=== PATIENT | female | born 1955 | race Caucasian/White ===

== ENCOUNTER 2018-06-19 15:27 | Emergency (ER) | payer BC ==
[2018-06-19 15:27] VITALS: BMI 31.9
--- NOTE | 2018-06-19 16:35 | ED PDOC ---
Upper Extremity Pain/Injury Time Seen by Provider: 06/19/18 16:17 Chief Complaint (Nursing): Upper Extremity Problem/Injury Chief Complaint (Provider): right wrist and forearm pain History Per: Patient History/Exam Limitations: no limitations Onset/Duration Of Symptoms: Days (x3) Current Symptoms Are (Timing): Still Present Additional Complaint(s): 63 year old right hand dominant female with a history of diabetes and high cholesterol presents to the ED with right wrist swelling and pain radiating up to right elbow that started 3 days ago. Patient denies any trauma or injury, no fever or chills. Patient states that she went shopping a few days ago and was lifting heavy bags with right arm. PMD: Dr. Nu Griffin Past Medical History Reviewed: Historical Data, Nursing Documentation, Vital Signs Vital Signs: Last Vital Signs Temp 98.9 F 06/19/18 15:36 Pulse 84 06/19/18 15:36 Resp 16 06/19/18 15:36 BP 140/76 06/19/18 15:36 Pulse Ox 96 06/19/18 15:36 - Medical History PMH: Diabetes (type II), Hypercholesterolemia - Surgical History Surgical History: Appendectomy - Family History Family History: States: No Known Family Hx - Living Arrangements Living Arrangements: With Family - Social History Current smoker - smoking cessation education provided: No Ex-Smoker (has not smoked in the last 12 months): No Alcohol: Social Drugs: Denies - Home Medications Home Medications: Ambulatory Orders Medication Instructions Recorded Naproxen [Naprosyn Tab] 375 mg PO BID PRN #14 tab 12/14/16 Cyclobenzaprine [Cyclobenzaprine 10 mg PO TID PRN #20 tab 06/19/18 HCl] Naproxen [Naprosyn] 500 mg PO BID #20 tab 06/19/18 - Allergies Allergies/Adverse Reactions: Allergies Allergy/AdvReac Type Severity Reaction Status Date / Time No Known Allergies Allergy Verified 06/19/18 15:36 Review of Systems ROS Statement: Except As Marked, All Systems Reviewed And Found Negative Constitutional: Negative for: Fever Cardiovascular: Negative for: Chest Pain Respiratory: Negative for: Cough Gastrointestinal: Negative for: Nausea, Vomiting Musculoskeletal: Positive for: Other (right wrist and forearm pain) Neurological: Negative for: Headache, Dizziness Physical Exam - Reviewed Nursing Documentation Reviewed: Yes Vital Signs Reviewed: Yes - Physical Exam Appears: Positive for: Well, Non-toxic, No Acute Distress Skin: Positive for: Normal Color. Negative for: Rash Eye Exam: Positive for: Normal appearance Neck: Positive for: Normal Cardiovascular/Chest: Positive for: Regular Rate, Rhythm Respiratory: Positive for: Normal Breath Sounds Extremity: Positive for: Other (Mild swelling dorsal aspect of right wrist, tenderness to right forearm, full range of motion right elbow and shoulder, decreased range of motion right wrist due to pain, normal distal sensation) Neurologic/Psych: Positive for: Alert, Oriented - ECG O2 Sat by Pulse Oximetry: 96 (RA) Pulse Ox Interpretation: Normal - Other Rad right hand and wrist x-ray X-Ray: Interpreted by Me, Viewed By Me X-Ray Interpretation: no fx, no dis right forearm x-ray X-Ray: Interpreted by Me, Viewed By Me X-Ray Interpretation: no fx, no dis Medical Decision Making Medical Decision Making: Time: 16:28 Initial Impression: 63 year old female with right arm pain Initial Plan: --Right forear XR --Right hand XR --Right wrist XR --Motrin Patient states motrin helped pain. Rx naprosyn and flexeril given. Ortho referral provided. Scribe Attestation: Documented by Amelia Sanz, acting as a scribe for Jess Delacruz PA-C. Provider Scribe Attestation: All medical record entries made by the Scribe were at my direction and personally dictated by me. I have reviewed the chart and agree that the record accurately reflects my personal performance of the history, physical exam, medical decision making, and the department course for this patient. I have also personally directed, reviewed, and agree with the discharge instructions and disposition. Procedures - Splinting Location: right arm Pre-Made Type: velcro wrist splint, sling Pre-Proc Neuro Vasc Exam: normal Post-Proc Neuro Vasc Exam: normal Disposition - Clinical Impression Clinical Impression: Wrist tendonitis - Patient ED Disposition Is Patient to be Admitted: No Counseled Patient/Family Regarding: Studies Performed, Diagnosis, Need For Followup, Rx Given - Disposition Referrals: Sual Bailey III, MD [Staff Provider] - Disposition: Routine/Home Disposition Time: 17:31 Condition: STABLE Additional Instructions: Ice, rest and elevate affected area. Take prescription meds as directed as needed for pain. Follow-up with orthopedist or primary doctor for any persistent symptoms. Prescriptions: Cyclobenzaprine [Cyclobenzaprine HCl] 10 mg PO TID PRN #20 tab PRN Reason: Muscle Spasm Naproxen [Naprosyn] 500 mg PO BID #20 tab Instructions: Tendonitis (DC), Wrist Sprain (DC) Forms: [facility] (Italian)
--- NOTE | 2018-06-19 17:16 | RAD ---
Date of service: 06/19/2018 PROCEDURE: Right Wrist Radiographs. HISTORY: trauma COMPARISON: None. FINDINGS: BONES: Normal. No fracture. JOINTS: Normal. No dislocation. SOFT TISSUES: Normal. OTHER FINDINGS: None. IMPRESSION: Normal right wrist radiographs. Concordant results with the preliminary interpretation rendered by the emergency department physician procedure.
--- NOTE | 2018-06-19 17:17 | RAD ---
PROCEDURE: Radiographs of the Right Forearm HISTORY: trauma COMPARISON: None available. TECHNIQUE: Frontal and lateral views obtained. FINDINGS: BONES: No fracture or destructive lesion. JOINT SPACES: Unremarkable. OTHER FINDINGS: None. IMPRESSION: Unremarkable radiographs of the right forearm. Concordant results with the preliminary interpretation rendered by the emergency department physician procedure.
--- NOTE | 2018-06-19 17:17 | RAD ---
PROCEDURE: Right Hand Radiographs. HISTORY: Nontraumatic right upper extremity pain. COMPARISON: None. FINDINGS: BONES: Normal. No fracture. JOINTS: Normal. No osteoarthritic changes. SOFT TISSUES: Normal. OTHER FINDINGS: None. IMPRESSION: No significant or acute findings to account for/ related to the clinical presentation. Concordant results with the preliminary interpretation rendered by the emergency department physician procedure.
[2018-06-19 18:00] VITALS: BP 130/78; PULSE 78; RESP 18; TEMP 98; O2SAT 99
== END 2018-06-19 17:58 | disposition home or self-care (01) ==
LOC: H.ER 15:27
DX: M65.841 Other synovitis and tenosynovitis, right hand (principal); E11.9 Type 2 diabetes mellitus without complications; E78.00 Pure hypercholesterolemia, unspecified

== ENCOUNTER 2018-11-05 08:54 | Emergency (ER) | payer BC ==
[2018-11-05 08:54] VITALS: BMI 31.9
[2018-11-05 09:02] VITALS: BP 137/82; PULSE 72; RESP 17; TEMP 97.4; O2SAT 98
--- NOTE | 2018-11-05 09:32 | ED PDOC ---
HPI: Skin/Bite Injury Time Seen by Provider: 11/05/18 09:15 Chief Complaint (Nursing): Abnormal Skin Integrity History Per: Patient Onset/Duration Of Symptoms: Days (2) Location Of Injury: Left: Leg Quality Of Symptoms: Itching Severity: Mild Pain Scale Rating Of: 0 Additional Complaint(s): Chronic mole left leg fell off in shower 2 days ago and bled. No swelling, drainage or pain since then. Past Medical History Vital Signs: Last Vital Signs Temp 97.4 F L 11/05/18 09:01 Pulse 72 11/05/18 09:01 Resp 17 11/05/18 09:01 BP 137/82 11/05/18 09:01 Pulse Ox 98 11/05/18 09:01 - Medical History PMH: Diabetes (type II), Hypercholesterolemia - Surgical History Surgical History: Appendectomy - Family History Family History: States: Unknown Family Hx - Home Medications Home Medications: Ambulatory Orders Medication Instructions Recorded Naproxen [Naprosyn Tab] 375 mg PO BID PRN #14 tab 12/14/16 Cyclobenzaprine [Cyclobenzaprine 10 mg PO TID PRN #20 tab 06/19/18 HCl] Naproxen [Naprosyn] 500 mg PO BID #20 tab 06/19/18 - Allergies Allergies/Adverse Reactions: Allergies Allergy/AdvReac Type Severity Reaction Status Date / Time No Known Allergies Allergy Verified 06/19/18 15:36 Review of Systems Constitutional: Negative for: Fever Skin: Positive for: Other (Mole let leg) Physical Exam - Physical Exam Appears: Positive for: Non-toxic, No Acute Distress Extremity: Positive for: Other (Left lower ext. 1 cm scab lateral distal 1/3. No surrounding erythema or drainage. Nontender.) - ECG O2 Sat by Pulse Oximetry: 98 Medical Decision Making Medical Decision Making: Will refer to derm for possible biopsy. No evidence of infection Disposition - Clinical Impression Clinical Impression: Skin mole - Patient ED Disposition Is Patient to be Admitted: No Counseled Patient/Family Regarding: Diagnosis, Need For Followup - Disposition Referrals: Isidro Luis MD [Staff Provider] - Disposition: Routine/Home Disposition Time: 09:33 Condition: FAIR Instructions: Moles on the Skin
== END 2018-11-05 09:40 | disposition home or self-care (01) ==
LOC: H.ER 08:54
DX: D22.9 Melanocytic nevi, unspecified (principal)

== ENCOUNTER 2018-12-17 10:48 | Emergency (ER) | payer BC ==
[2018-12-17 10:56] VITALS: BMI 32.6
[2018-12-17 10:58] VITALS: BP 130/78; PULSE 81; TEMP 97.7; O2SAT 96
[2018-12-17] MEDS ORDERED: Naproxen 500 MG TAB PO STA (12:26)
[2018-12-17 12:27] VITALS: RESP 18
--- NOTE | 2018-12-17 12:40 | ED PDOC ---
Lower Extremity Pain/Injury Time Seen by Provider: 12/17/18 12:19 Chief Complaint (Nursing): Lower Extremity Problem/Injury Chief Complaint (Provider): Lower Extremity Problem/Injury History Per: Patient History/Exam Limitations: no limitations Onset/Duration Of Symptoms: Days (x 2) Current Symptoms Are (Timing): Still Present Pain Scale Rating Of: 7 Additional Complaint(s): 63 year old female with a history of diabetes and hypothyroidism presents for evaluation of a right foot injury sustained yesterday. Patient was walking in front of her apartment building when she slipped on ice, landing on her buttocks and twisting her foot in the process. She reports that worsening pain to the foot interfered with her sleep. Pain worsens with movement. Patient also reports difficulty ambulating. She took aspirin yesterday with no relief and did not take any pain medications today. Denies other injury, prior foot surgeries and other complaints. PMD: Dr. Navin Griffin - Ankle/Foot Description Of Injury: Twisted Past Medical History Reviewed: Historical Data, Nursing Documentation, Vital Signs Vital Signs: Last Vital Signs Temp 97.7 F 12/17/18 12:10 Pulse 81 12/17/18 12:10 Resp 18 12/17/18 12:10 BP 130/78 12/17/18 12:10 Pulse Ox 96 12/17/18 12:10 - Medical History PMH: Diabetes (type II), Hypercholesterolemia, Hypothyroidism - Surgical History Surgical History: Appendectomy, - Family History Family History: States: Unknown Family Hx - Social History Current smoker - smoking cessation education provided: No Alcohol: Social Drugs: Denies - Home Medications Home Medications: Ambulatory Orders Medication Instructions Recorded RX: Naproxen [Naprosyn Tab] 375 mg PO BID PRN #14 tab 12/14/16 Cyclobenzaprine [Cyclobenzaprine 10 mg PO TID PRN #20 tab 06/19/18 HCl] Naproxen [Naprosyn] 500 mg PO BID #20 tab 06/19/18 Acetaminophen [Acetaminophen 8 650 mg PO Q8 PRN #21 tablet.er 12/17/18 Hour] Meloxicam [Mobic] 15 mg PO DAILY #10 tab 12/17/18 - Allergies Allergies/Adverse Reactions: Allergies Allergy/AdvReac Type Severity Reaction Status Date / Time No Known Allergies Allergy Verified 06/19/18 15:36 Review of Systems ROS Statement: Except As Marked, All Systems Reviewed And Found Negative Musculoskeletal: Positive for: Foot Pain (right) Physical Exam - Reviewed Nursing Documentation Reviewed: Yes Vital Signs Reviewed: Yes - Physical Exam Comments: GENERAL APPEARANCE: Patient is awake, alert, oriented x 3, in no distress, resting comfortably. Limping in the ED. SKIN: Warm, dry; (-) cyanosis. CARDIOVASCULAR: regular rate and rhythm NECK: Supple, FROM RESPIRATORY: Normal breath sounds, respirations even and nonlabored. LOWER EXTREMITY: Right foot: (+) edema to the dorsum of the mid foot and forefoot, diffuse tenderness of the distal aspect of the 1st-4th metatarsals; (+) decreased range of motion of foot secondary to pain. (+) diffuse tenderness to the first toe, (-) erythema, skin break, warmth; Ankle and calf are nontender. Achilles tendon intact and nontender. Sensation and capillary refill intact. (+) distal pulses. NEUROLOGIC: (+) distal sensation. - ECG O2 Sat by Pulse Oximetry: 96 (RA) Pulse Ox Interpretation: Normal Medical Decision Making Medical Decision Makin:26 Clinical Impression: acute foot pain; sprain vs fracture Initial Plan: --Naproxen 500 mg PO --Right foot x-ray 3 views --Re-evaluation 1320 XR reviewed, radiology report follows Date of service: 12/17/2018 PROCEDURE: Right Foot Radiographs. HISTORY: s/p fall on ice, pain COMPARISON: 12/14/2016 FINDINGS: BONES: Current lateral view is slightly different than the prior 1. Along the dorsal aspect of the 1st metatarsal base a triangular 5 x 3 mm bony density is noted this may represent a prior subacute or subacute to chronic fracture or some ossific debris. Any potential donor site would likely be 1st dorsal proximal phalanx. This proximal to this there is prominent osteophytic spurring along the dorsal 1st metatarsal head. The soft tissues here appears somewhat thickened-clinical correlation is needed given the concomitant 1st metatarsal- phalangeal joint arthrosis present. Given the frontal view-however a small chip osseous avulsion off the lateral 1st metatarsal head just distal to the lateral sesamoid bone cannot be excluded. The current study a faint lucency here is noted this is not appreciated such on the prior study. The apparent separate well corticated small ossification dorsal aspect 1st metatarsal-phalangeal joint therefore is indeterminate in its exact origin and clinical significance- differential considerations are a subacute or subacute to chronic ossific avulsed fracture fragment or some degenerative debris. Conceivably some of fracture of a small osteophyte here is another consideration. History does note pain and swelling and trauma No 5th middle phalanx is noted. This may be developmental variant with fusion to the more distal 5th phalanx. The 5th proximal phalanx has a somewhat truncated appearance yet is well corticated and this appearance is unchanged with the prior study. Incidentally noted is an os peroneum JOINTS: First metatarsal-phalangeal joint arthrosis-as described above. SOFT TISSUES: Diffuse soft tissue swelling mild in degree of the metatarsal heads. OTHER FINDINGS: Franklin's tendon insetional enesthesophyte. Increasing conspicuity on this current exam. IMPRESSION: Indeterminate findings regarding the triangular well corticated ossification dorsal aspect at the 1st metatarsal-phalangeal joint level-an osseous avulsion fracture fragment here probably not acute is 1 consideration. Subacute and/or subacute to chronic osseous avulsion is another consideration. Large degenerative debris and/or fractured prior osteophyte in this area can also simulate this. Current separation of it from the surrounding osseous anatomy is more distinct now than before 1st metatarsal-phalangeal joint arthrosis Other findings as above. In light of XR findings, consult placed to podiatry. On re-evaluation, patient with worsening pain. Tramadol 50mg PO ordered. Patient not driving home. 1335 Case discussed with Heike, podiatry resident, who is agreeable to evaluation in ED. 1430 Podiatry at bedside. See consult note. 1515 Per podiatry evaluation, patient placed in Erazo dressing and surgical shoe. NV intact after placement. Patient provided with crutches and instructed on crutch walking. Weight bearing as tolerated. Patient to follow up with Dr Holt in office. RICE encouraged. On re-evaluation, patient reports improvement of symptoms. On exam, patient remains AAOx3, in no acute distress. Vitals stable. Lab/Diagnostic results d/w the patient in great detail. Diagnosis of acute foot pain s/p fall d/w the patient. Based on history, exam and diagnostic results, plan will be for outpatient follow up with podiatry. Patient instructed to follow-up with pmd / referral provided / the clinic in 1- 2 days without fail. Advised to take medication as prescribed. Return to the emergency room at any time for any new or worsening symptoms. Patient states she fully agrees with and understands discharge instructions. States that she agrees with the plan and disposition. Verbalized and repeated discharge instructions and plan. I have given the patient opportunity to ask any additional questions. Scribe Attestation: Documented by Nuris Vega, acting as a scribe for Yasmeen Balderas PA-C Provider Scribe Attestation: All medical record entries made by the Scribe were at my direction and personally dictated by me. I have reviewed the chart and agree that the record accurately reflects my personal performance of the history, physical exam, medical decision making, and the department course for this patient. I have also personally directed, reviewed, and agree with the discharge instructions and disposition. Disposition - Clinical Impression Clinical Impression: Foot pain, Foot sprain, Contusion - Patient ED Disposition Is Patient to be Admitted: No Counseled Patient/Family Regarding: Studies Performed, Diagnosis, Need For Followup, Rx Given - Disposition Referrals: Channing Holt MD [Staff Provider] - Podiatry Clinic [Outside] Disposition: Routine/Home Disposition Time: 15:15 Condition: STABLE Additional Instructions: REST ICE ELEVATE The emergency medical care you received today was directed at your acute sympt oms. If you were prescribed any medication, please fill it and take as directed. It may take several days for your symptoms to resolve. Return to the Emergency Department if your symptoms worsen, do not improve, or if you have any other problems. Please contact your doctor in 2 days for re-evaluation and follow up / or call one of the physicians/clinics you have been referred to that are listed on the Patient Visit Information form that is included in your discharge packet. Bring any paperwork you were given at discharge with you along with any medications you are taking to your follow up visit. Our treatment cannot replace ongoing medical care by a primary care provider (PCP) outside of the emergency department. Prescriptions: Acetaminophen [Acetaminophen 8 Hour] 650 mg PO Q8 PRN #21 tablet.er PRN Reason: Pain, Moderate (4-7) Meloxicam [Mobic] 15 mg PO DAILY #10 tab Instructions: Muscle and Bone Pain (DC), Metatarsalgia (DC), Foot Sprain (DC) Forms: [facility] (Togolese) Print Language: LIBYAN - POA Present On Arrival: Falls Or Trauma (yesterday on ice)
[2018-12-17] MEDS ORDERED: Naproxen 500 MG TAB PO ONE (12:59)
--- NOTE | 2018-12-17 13:18 | RAD ---
Date of service: 12/17/2018 PROCEDURE: Right Foot Radiographs. HISTORY: s/p fall on ice, pain COMPARISON: 12/14/2016 FINDINGS: BONES: Current lateral view is slightly different than the prior 1. Along the dorsal aspect of the 1st metatarsal base a triangular 5 x 3 mm bony density is noted this may represent a prior subacute or subacute to chronic fracture or some ossific debris. Any potential donor site would likely be 1st dorsal proximal phalanx. This proximal to this there is prominent osteophytic spurring along the dorsal 1st metatarsal head. 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 Given the frontal view-however a small chip osseous avulsion off the lateral 1st metatarsal head just distal to the lateral sesamoid bone cannot be excluded. The current study a faint lucency here is noted this is not appreciated such on the prior study. The apparent separate well corticated small ossification dorsal aspect 1st metatarsal-phalangeal joint therefore is indeterminate in its exact origin and clinical significance-differential considerations are a subacute or subacute to chronic ossific avulsed fracture fragment or some degenerative debris. Conceivably some of fracture of a small osteophyte here is another consideration. History does note pain and swelling and trauma No 5th middle phalanx is noted. This may be developmental variant with fusion to the more distal 5th phalanx. The 5th proximal phalanx has a somewhat truncated appearance yet is well corticated and this appearance is unchanged with the prior study. Incidentally noted is an os peroneum JOINTS: First metatarsal-phalangeal joint arthrosis-as described above. SOFT TISSUES: Diffuse soft tissue swelling mild in degree of the metatarsal heads. OTHER FINDINGS: [place]'s tendon insetional enesthesophyte. Increasing conspicuity on this current exam. IMPRESSION: Indeterminate findings regarding the triangular well corticated ossification dorsal aspect at the 1st metatarsal-phalangeal joint level-an osseous avulsion fracture fragment here probably not acute is 1 consideration. Subacute and/or subacute to chronic osseous avulsion is another consideration. Large degenerative debris and/or fractured prior osteophyte in this area can also simulate this. Current separation of it from the surrounding osseous anatomy is more distinct now than before 1st metatarsal-phalangeal joint arthrosis Other findings as above. Comments: Study marked for PA review .
--- NOTE | 2018-12-17 13:39 | CP.PCM.CON ---
History of Present Illness - History of Present Illness History of Present Illness: Podiatry consult note for Dr. Holt, 63 year old female with PMHx of diabetes and hypothyroidism presents for evaluation of right foot injury that she sustained yesterday. Patient states she was walking and slipped and feel on ice twisting her foot. States initially the pain wasn't bad, however over time pain has gotten worse and foot became more swollen. States she was not able to sleep last night because of the pain. Pain worsens with movement. Patient also reports difficulty ambulating. She took aspirin yesterday with no relief and did not take any pain medications today. Denies other injury, prior foot surgeries and other complaints. Pmhx: Diabetes and hypothyroidism Pshx: denies Allergies: NKFDA Past Patient History - Past Social History Alcohol: Social Drugs: Denies - CARDIAC Hx Hypercholesterolemia: Yes - ENDOCRINE/METABOLIC Hx Hypothyroidism: Yes - PSYCHIATRIC Hx Substance Use: No - SURGICAL HISTORY Hx Appendectomy: Yes - ANESTHESIA Hx Anesthesia: Yes Hx Anesthesia Reactions: No Meds Home Medications: Home Medication List Medication Instructions Recorded Confirmed Type Acetaminophen [Acetaminophen 8 650 mg PO Q8 PRN #21 tablet.er 12/17/18 Rx Hour] Meloxicam [Mobic] 15 mg PO DAILY #10 tab 12/17/18 Rx Allergies/Adverse Reactions: Allergies Allergy/AdvReac Type Severity Reaction Status Date / Time No Known Allergies Allergy Verified 06/19/18 15:36 Physical Exam - Constitutional Appears: Well, Non-toxic, No Acute Distress - Head Exam Head Exam: ATRAUMATIC - Extremities Exam Additional comments: Right lower extremity exam: Vascular: DP/PT 2/4, CFT <3 secs x5, TG warm to warm, no erythema, edema noted on the dorsum of the forefoot derm: no open lesions, no ecchymosis, edema noted on the dorsum of the forefoot. ortho: pain on palpation to the dorsum and plantar of the forefoot, pain with active/passive ROM of the digits 1-4. neuro: protective sensation intact via ipswich /4 - Neurological Exam Neurological exam: Alert, Oriented x3 - Psychiatric Exam Psychiatric exam: Normal Affect Results - Vital Signs Recent Vital Signs: Last Vital Signs Temp 97.7 F 12/17/18 12:10 Pulse 81 12/17/18 12:10 Resp 18 12/17/18 12:10 BP 130/78 12/17/18 12:10 Pulse Ox 96 12/17/18 13:34 Assessment & Plan - Assessment and Plan (Free Text) Assessment: 63 yo female seen and evaluated for right forefoot pain and swelling; no acute fracture noted on x-rays. Plan: Patient seen and evaluated Chart, labs and vitals reviewed History and plan discussed in detail with the attending, Dr. Holt X-rays reviewed: chip fracture of the first proximal phalanx; acute vs. chronic vs arthritis Patient placed in a mortensen compression Surgical shoe dispensed Patient educated on the importance of using crutches for stability; patient refuses Advised to keep dressing d/c/i Patient to follow up with Dr. Holt within a week Thank you for the consult
== END 2018-12-17 15:35 | disposition home or self-care (01) ==
LOC: H.ER 10:48
DX: S93.601A Unspecified sprain of right foot, initial encounter (principal); X50.9XXA Other and unspecified overexertion or strenuous movements or postures, initial encounter; Y92.89 Other specified places as the place of occurrence of the external cause; E03.9 Hypothyroidism, unspecified; E11.9 Type 2 diabetes mellitus without complications; E78.00 Pure hypercholesterolemia, unspecified; Y93.01 Activity, walking, marching and hiking; M19.071 Primary osteoarthritis, right ankle and foot